=== PATIENT | female | born 1995 | race Asian ===

== ENCOUNTER 2020-10-30 03:41 | Emergency (ER) | payer OTHER ==
[~2020-10-30] VITALS: Ht 157.5 cm; Wt 54.4 kg
[2020-10-30 03:50] VITALS: BP 128/84
--- NOTE | 2020-10-30 03:57 | NUR ---
PT IS MEDICALLY CLEARED FOR INCARERATION AND RELEASED UNDER THE CARE OF [employer] OFFICERS IN STABLE CONDITION. PT IS AMBULATORY ON STEADY GAIT.
== END 2020-10-30 04:00 | disposition home or self-care (01) ==
LOC: ER 03:44
DX: Z02.89 Encounter for other administrative examinations (principal); Z71.1 Person with feared health complaint in whom no diagnosis is made